=== PATIENT | male | born 1975 | race Caucasian/White ===

== ENCOUNTER → 2018-01-21 | Outpatient (CLI) | payer OTHER ==
--- NOTE | 2018-01-21 09:28 | DIAGNOSTIC IMAGING REPORT ---
ABDOMEN LIMITED (US) CLINICAL HISTORY: LEFT INGUINAL PAIN, left lower quadrant abdominal PAIN COMPARISON STUDY: None. FINDINGS: Real-time sonographic imaging of the left lower quadrant/inguinal region was performed with herbicide service sales representative images submitted. No evidence for a left inguinal hernia. No masses or fluid collections within the left lower quadrant abdominal wall. No inguinal lymphadenopathy. IMPRESSION: No sonographic abnormality within the left inguinal region. Electronically signed by: Jasper Roca M.D. 01/21/2018 9:27 AM Dictated Date/Time: 01/21/2018 9:26 AM
--- NOTE | 2018-01-21 09:29 | DIAGNOSTIC IMAGING REPORT ---
TESTICULAR ULTRASOUND HISTORY: LEFT INGUINAL PAIN, LLQ PAIN COMPARISON: None. FINDINGS: Right testis: 4.5 x 2.9 x 2.3 cm. There are no intratesticular masses. Normal color flow. No hydrocele. The epididymis is unremarkable. Left testis: 4.1 x 2.9 x 2.3 cm. There are no intratesticular masses. Normal color flow. No hydrocele. The epididymis demonstrates a 2 mm cyst at the head. IMPRESSION: 1. Normal bilateral testes. 2. A 2 mm left epididymal head cyst. Electronically signed by: Jasper Roca M.D. 01/21/2018 9:28 AM Dictated Date/Time: 01/21/2018 9:27 AM
== END | disposition home or self-care (01) ==
LOC: C.ULTR 08:07
PROVIDERS: ATTEND Physician Assistant
DX: R10.32 Left lower quadrant pain (principal)